=== PATIENT | female | born 1970 | race Caucasian/White ===

== ENCOUNTER → 2017-10-31 | Outpatient (CLI) | payer OTHER ==
[~2017-10-31] MED LIST: MEDROL DOSEPAK4 MG PO; PERCOCET 325 MG1 TA5 PO; VICODIN ES 7501 TAB PO
== END | disposition home or self-care (01) ==
LOC: US 10-28 11:00
DX: R05 Cough (principal); R59.9 Enlarged lymph nodes, unspecified; R63.4 Abnormal weight loss; F17.200 Nicotine dependence, unspecified, uncomplicated

== ENCOUNTER → 2017-11-02 | Outpatient (CLI) | payer OTHER | END | disposition home or self-care (01) | LOC: MAMMO 00:19 | DX: Z12.31 Encounter for screening mammogram for malignant neoplasm of breast (principal) ==

== ENCOUNTER → 2017-11-11 | Outpatient (CLI) | payer OTHER | END | disposition home or self-care (01) | LOC: CT 09:33 | DX: R63.4 Abnormal weight loss (principal); Z82.41 Family history of sudden cardiac death; F17.200 Nicotine dependence, unspecified, uncomplicated ==